=== PATIENT | female | born 1975 | race Caucasian/White ===

== ENCOUNTER 2017-02-05 22:54 | Observation (INO) | payer BC ==
[2017-02-05 23:29] LABS: HEMATOCRIT 39.4 % (36.0-48.0); HEMOGLOBIN 13.7 g/dL (12-16); MCH 31.2 pg (26.0-34.0); MCHC 34.8 g/dL (31.0-37.0); MCV 89.7 fL (80.0-100.0); MEAN PLATELET VOLUME 8.4 fL (7.4-10.4); NEUTROPHILS 33.9 % (40-80); PLATELET COUNT 235 10x3/uL (130-400); RBC 4.39 10x6/uL (4.00-5.40); RDW 11.9 % (11.5-14.5); WBC 6.7 10x3/uL (4.8-10.8)
[2017-02-05 23:45] LABS: ALBUMIN 3.4 g/dL (3.4-5.0); ALKALINE PHOSPHATASE 67 U/L (46-116); ALT (SGPT) 24 U/L (10-68); CALC OSMOLALITY 275 mosm/kg (275-300); CALCIUM 8.9 mg/dL (8.5-10.1); CARBON DIOXIDE 23.8 mmol/L (21.0-32.0); CHLORIDE - SERUM 106 mmol/L (98-107); CREATININE - SERUM 1.2 mg/dL (0.6-1.3); GLUCOSE 100 mg/dL (74-106); POTASSIUM - SERUM 3.3 mmol/L (3.5-5.1); PROTEIN - SERUM 6.5 g/dL (6.4-8.2); SODIUM 138 mmol/L (136-145); UREA NITROGEN 12 mg/dL (7-18); eGFR NON AFRICAN AMERICAN 52 mL/min (90-120)
[2017-02-05 23:56] LABS: AMYLASE - SERUM 67 U/L (25-115); CKMB 0.7 U/L (0.0-3.6); CREATINE KINASE 151 UL (21-215); LIPASE 187 U/L (73-393)
[2017-02-05 23:57] LABS: TROPONIN-I < 0.017 ng/mL (0.000-0.060)
[2017-02-06] MEDS ORDERED: CYCLOBENZAPRINE10 MG PO (01:49)
[2017-02-06] MEDS ORDERED: AMBIEN10 MG PO (01:50)
--- NOTE | 2017-02-06 01:50 | NUR ---
REC FROM ER VIA WC. AMBULATED TO BED WITH STEADY GAIT. ALERT/ORIENTED X4. RATES CHEST PAIN LEVEL AT 0 ON NUMBER SCALE. IV IN L FA INTACT SL. DENIES ANY NEEDS. ORIENTED TO ROOM AND CALL LIGHT. HER IS PRESENT IN ROOM.
[2017-02-06 01:53] LABS: CKMB 0.8 U/L (0.0-3.6); CREATINE KINASE 149 UL (21-215); TROPONIN-I < 0.017 ng/mL (0.000-0.060)
--- NOTE | 2017-02-06 02:30 | NUR ---
C/O LEFT FA IV HURTING. WOULD NOT FLUSHED. REMOVED AND RESITED NEW IV IN RT WRIST. ADMIN PROTONIX IV.
[2017-02-06 02:37] VITALS: BP 105/68; BMI 24.3
[2017-02-06 04:00] VITALS: BP 105/68
--- NOTE | 2017-02-06 06:43 | NUR ---
DID EKG PER ORDER. REFUSED NITRO PASTE AND CARAFATE. STATING NOT HAVING ANY CHEST PAIN OR GI UPSET.
--- NOTE | 2017-02-06 07:30 | NUR ---
RESTING QUIETLY EYES CLOSED RESP UNLABORED NAD NOTED AT BEDSIDE
[2017-02-06 07:55] LABS: CKMB 0.6 U/L (0.0-3.6); CREATINE KINASE 141 UL (21-215)
[2017-02-06 07:56] LABS: TROPONIN-I < 0.017 ng/mL (0.000-0.060)
[2017-02-06 07:58] VITALS: BP 107/69
[2017-02-06 09:46] LABS: APPEARANCE HAZY (CLEAR); BILIRUBIN NEGATIVE (NEGATIVE); COLOR YELLOW (YELLOW); GLUCOSE NEGATIVE (NEGATIVE); KETONE NEGATIVE (NEGATIVE); NITRITE NEGATIVE (NEGATIVE); PROTEIN NEGATIVE (NEGATIVE); UROBILINOGEN NORMAL (NORMAL)
[2017-02-06 09:47] LABS: BACTERIA MODERATE /hpf (NONE SEEN); EPITHELIAL CELLS 0-5 /hpf (0-5); RED CELLS - URINE 0-5 /hpf (0-5)
[2017-02-06 11:14] VITALS: BP 113/76
[2017-02-06 13:38] LABS: CKMB 0.9 U/L (0.0-3.6); CREATINE KINASE 137 UL (21-215); TROPONIN-I < 0.017 ng/mL (0.000-0.060)
--- NOTE | 2017-02-06 13:57 | NUR ---
PT REFUSES TO TAKE PROTONIX OR NTG PASTE STATES SHE HAS NO STOMACH ISSUES AND HAS HAD NO CHEST PAIN SINCEW AMDIT
[2017-02-06 16:18] VITALS: BP 110/59
[2017-02-06] MEDS ORDERED: ASPIRIN EC81 M1 PO (16:40)
[2017-02-06] MEDS ORDERED: NICODERM C1 PATCH .2 TRANSDERM (16:45)
[2017-02-06] MEDS ORDERED: PROTONIX40 MG PO (16:45)
--- NOTE | 2017-02-06 17:35 | NUR ---
REVIEWED DISCHARGE INSTRUCTIONS WITH PT STATES UNDERSTANDING COPY GIVEN PT STATED REMOVED OWN SALINE LOCK SITE FREE OF REDNESS OR EDEMA PT DISCHARGED HOME LEFT UNIT VIA W/C IN STABLE CONDITION WITH ALL PERSONAL BELONGINGS
== END 2017-02-06 17:35 | disposition home or self-care (01) ==
LOC: D.ER 22:54 → D.M2 02-06 01:04 → OBSVTIME 02-06 01:04 → D.M2 02-06 17:35
PROVIDERS: Family Medicine; ADMIT Family Medicine
DX: R07.9 Chest pain, unspecified (principal); F17.203 Nicotine dependence unspecified, with withdrawal; M54.2 Cervicalgia; G89.29 Other chronic pain